=== PATIENT | male | born 1975 | race Caucasian/White ===

== ENCOUNTER 2016-08-02 05:22 | Emergency (ER) | payer MEDICARE ==
[2016-08-02 05:34] VITALS: O2SAT 100
--- NOTE | 2016-08-02 06:14 | ED.PDOC ---
History of Present Illness - General Chief Complaint: Lower Extremity Injury Stated Complaint: left hip pain Time Seen by Provider: 08/02/16 06:11 Source: patient Exam Limitations: no limitations - History of Present Illness Initial Comments: Patient stepped off of his truck and felt pain in his left sided hip prosthesis today. Prosthesis put in place for arthritis. He has had pain over the incision site all day with a single bruise. No exacerbating nor alleviating factors. No previous episodes. No other complaints. Timing/Duration: 24 hours Severity: mild Improving Factors: nothing Worsening Factors: nothing Associated Symptoms: denies symptoms Allergies/Adverse Reactions: Allergies Cefaclor [From Ceclor] Allergy (Mild, Verified 04/19/16 13:46) Rash Home Medications: Ambulatory Orders Citalopram Hydrobromide [CeleXA] 40 mg PO BEDTIME 11/29/15 Meloxicam DAILY 04/19/16 busPIRone HCL [Buspar] 5 mg PO BID 04/19/16 Review of Systems - Review of Systems Constitutional: States: no symptoms reported EENTM: States: no symptoms reported Respiratory: States: no symptoms reported Cardiology: States: no symptoms reported Gastrointestinal/Abdominal: States: no symptoms reported Genitourinary: States: no symptoms reported Musculoskeletal: States: see HPI Skin: States: no symptoms reported Neurological: States: no symptoms reported Endocrine: States: no symptoms reported Hematologic/Lymphatic: States: no symptoms reported Past Medical History (General) - Patient Medical History Hx Seizures: No Hx Stroke: Yes - heat related Hx Dementia: No Hx Asthma: No Hx of COPD: No Hx Cardiac Disorders: No Hx Congestive Heart Failure: No Hx Pacemaker: No Hx Hypertension: No Hx Thyroid Disease: No Hx Diabetes: No Hx Gastroesophageal Reflux: No Hx Renal Disease: No Hx Cancer: No Hx of HIV: No Hx Hepatitis C: No Hx MRSA: No - Vaccination History Hx Tetanus, Diphtheria Vaccination: Yes Hx Influenza Vaccination: Yes - Social History Hx Tobacco Use: Yes Hx Alcohol Use: No - once a week Hx Substance Use: Yes - smoke pot occ Hx Physical Abuse: No Hx Emotional Abuse: No - Triage Comment ED Triage Comment: after awakening this am with bruising to area, worried he injured L hip Family Medical History - Family History Mother Family History: No Known Living Status: Still Living Father Family History: No Known Living Status: Physical Exam - Physical Exam General Appearance: Alert Respiratory: lungs clear Cardiovascular/Chest: regular rate, rhythm Gastrointestinal/Abdominal: normal bowel sounds, non tender, soft Extremity: normal range of motion, non-tender, normal inspection Progress - Progress Progress: 08/02/16 06:13 two view of left hip showed prosthesis in place with no acute abnormalities Departure - Departure Clinical Impression: Contusion, hip Disposition: Discharge to Home or Self Care Condition: Good Departure Forms: ED Discharge - Pt. Copy, Patient Portal Self Enrollment Diet: resume usual diet Activity: increase activity as tolerated Home Medications: Ambulatory Orders Citalopram Hydrobromide [CeleXA] 40 mg PO BEDTIME 11/29/15 Meloxicam DAILY 04/19/16 busPIRone HCL [Buspar] 5 mg PO BID 04/19/16
[2016-08-02 06:29] VITALS: BP 139/78; TEMP 97.9
--- NOTE | 2016-08-02 13:47 | RAD ---
EXAM: Two view(s) of the left hip. INDICATION: Pain. COMPARISON: 06/21/2015. FINDINGS: No acute fracture or dislocation. Changes of a left hip arthroplasty in satisfactory alignment with no periprosthetic lucencies No large soft tissue swelling. IMPRESSION: 1. No acute fracture or dislocation. Electronically signed by: Darien Lares MD 08/02/2016 6:00 AM BOILER FITTER
--- NOTE | 2016-08-07 00:35 | RAD ---
EXAM: Two view(s) of the left hip. INDICATION: Pain. COMPARISON: 06/21/2015. FINDINGS: No acute fracture or dislocation. Changes of a left hip arthroplasty in satisfactory alignment with no periprosthetic lucencies No large soft tissue swelling. IMPRESSION: 1. No acute fracture or dislocation. Electronically signed by: Darien Lares MD 08/02/2016 6:00 AM CORNICE MAKER
== END 2016-08-02 06:29 | disposition home or self-care (01) ==
LOC: ER 05:22
DX: S70.02XA Contusion of left hip, initial encounter (principal); Z96.642 Presence of left artificial hip joint; Z88.3 Allergy status to other anti-infective agents; Z87.891 Personal history of nicotine dependence; X58.XXXA Exposure to other specified factors, initial encounter

== ENCOUNTER 2016-08-16 02:49 | Emergency (ER) | payer MEDICARE ==
[2016-08-16] MEDS ORDERED: IPRATROPIUM/ALBUTEROL 3 ML VIAL NEB ONE ×3 (02:57→03:19)
--- NOTE | 2016-08-16 03:15 | ED.PDOC ---
History of Present Illness - General Chief Complaint: Respiratory Problem Stated Complaint: shortness of breath Time Seen by Provider: 08/16/16 03:09 Source: patient Exam Limitations: no limitations - History of Present Illness Comments: He stated that he developed non productive cough 3 days ago becoming more frequent felt like getting worse.also with nasal congestion. Stated exposed to nearby neighbors with flu. Timing/Duration: other - 3 days ago Cough Quality/Degree: moderate, dry cough Possible Cause: illness exposure, smoke exposure Improving Factors: nothing Worsening Factors: nothing Associated Symptoms: shortness of breath Respiratory Risk Factors: exposure to illness Allergies/Adverse Reactions: Allergies Cefaclor [From Ceclor] Allergy (Mild, Verified 08/16/16 02:55) Rash Home Medications: Ambulatory Orders Citalopram Hydrobromide [CeleXA] 40 mg PO BEDTIME 11/29/15 Meloxicam DAILY 04/19/16 busPIRone HCL [Buspar] 5 mg PO BID 04/19/16 Albuterol Inhaler [Ventolin Hfa Inhaler] 108 mcg IN QID PRN #1 inh 08/16/16 Amoxicillin [Amoxil] 1,000 mg PO BID #30 cap 08/16/16 Benzonatate Perles [Tessalon Perles] 200 mg PO BID #30 cap 08/16/16 Chlorpheniramine Maleate [Chlor-Trimeton Allergy] 12 mg PO BID #20 tab 08/16/16 Review of Systems - Review of Systems Constitutional: States: no symptoms reported EENTM: States: nose congestion Respiratory: States: see HPI, cough Cardiology: States: no symptoms reported Gastrointestinal/Abdominal: States: no symptoms reported Genitourinary: States: no symptoms reported Musculoskeletal: States: no symptoms reported Skin: States: no symptoms reported Neurological: States: no symptoms reported Endocrine: States: no symptoms reported Hematologic/Lymphatic: States: no symptoms reported Past Medical History (General) - Patient Medical History Hx Seizures: No Hx Stroke: Yes - heat related Hx Dementia: No Hx Asthma: Yes - as a child Hx of COPD: No Hx Cardiac Disorders: No Hx Congestive Heart Failure: No Hx Pacemaker: No Hx Hypertension: No Hx Thyroid Disease: No Hx Diabetes: No Hx Gastroesophageal Reflux: No Hx Renal Disease: No Hx Cancer: No Hx of HIV: No Hx Hepatitis C: No Hx MRSA: No Surgical History: other - left hip,urethral dilatation - Vaccination History Hx Tetanus, Diphtheria Vaccination: No Hx Influenza Vaccination: No Hx Pneumococcal Vaccination: No - Social History Hx Tobacco Use: Yes Hx Chewing Tobacco Use: No Hx Alcohol Use: No - once a week Hx Substance Use: Yes - smoke pot occ Feels Threatened In Home Enviroment: No Feels Threatened In a Relationship: No Hx Physical Abuse: No Hx Emotional Abuse: No Hx Suspected Abuse: No - Activities of Daily Living Patient Lives Alone: No - family Family Medical History - Family History Mother Family History: No Known Living Status: Still Living Hx Family Asthma: Yes Hx Family Hypertension: Yes - parents Father Family History: No Known Living Status: Physical Exam - Physical Exam General Appearance: Alert, No apparent distress Eye Exam: bilateral normal ENT Exam: normal ENT inspection, hearing grossly normal, TMs normal Neck: non-tender, full range of motion, supple, normal inspection, trachea midline Respiratory: chest non-tender, no respiratory distress, no accessory muscle use , wheezing - mild Cardiovascular/Chest: normal peripheral pulses, regular rate, rhythm, no edema, no gallop, no JVD, no murmur Gastrointestinal/Abdominal: normal bowel sounds, non tender, soft Extremity: non-tender, normal inspection, no calf tenderness Neurologic: no motor/sensory deficits, alert, normal mood/affect, oriented x 3 Skin Exam: normal color, warm/dry Lymphatic: no adenopathy Progress - Results/Orders Results/Orders: 08/16/16 03:16 SVN/Updraft Therapy .ONCE 08/16/16 09:00 Updrafts Daily Flu swab negative - EKG/XRAY/CT XRAY: chest - no acute abnormalities Departure - Departure Clinical Impression: Bronchitis, acute Qualifiers: Bronchitis organism: unspecified organism Qualifier Code: (J20.9) Acute bronchitis, unspecified Time of Disposition: 04:06 Disposition: Discharge to Home or Self Care Condition: Good Departure Forms: ED Discharge - Pt. Copy, Patient Portal Self Enrollment Instructions: DI for Acute Bronchitis, Acute Bronchitis Referrals: Dustin Gray MD [Primary Care Provider] - 1-2 Weeks Prescriptions: Amoxicillin [Amoxil] 1,000 mg PO BID #30 cap Chlorpheniramine Maleate [Chlor-Trimeton Allergy] 12 mg PO BID #20 tab Benzonatate Perles [Tessalon Perles] 200 mg PO BID #30 cap Albuterol Inhaler [Ventolin Hfa Inhaler] 108 mcg IN QID PRN #1 inh PRN Reason: Cough & Congestion Home Medications: Ambulatory Orders Citalopram Hydrobromide [CeleXA] 40 mg PO BEDTIME 11/29/15 Meloxicam DAILY 04/19/16 busPIRone HCL [Buspar] 5 mg PO BID 04/19/16 Albuterol Inhaler [Ventolin Hfa Inhaler] 108 mcg IN QID PRN #1 inh 08/16/16 Amoxicillin [Amoxil] 1,000 mg PO BID #30 cap 08/16/16 Benzonatate Perles [Tessalon Perles] 200 mg PO BID #30 cap 08/16/16 Chlorpheniramine Maleate [Chlor-Trimeton Allergy] 12 mg PO BID #20 tab 08/16/16
[2016-08-16] MEDS ORDERED: diphenhydrAMINE HCL 25 MG CAP PO ONE (03:18)
[2016-08-16] MEDS ORDERED: BENZONATATE PERLES 100 MG CAP PO ONE (03:18)
--- NOTE | 2016-08-16 03:45 | RAD ---
EXAM: Single view chest. INDICATION: Chest pain. COMPARISON: Chest x-ray: 11/29/2015. FINDINGS: Cardiac silhouette: Unremarkable. Mariaa: Unremarkable. Lobar consolidation: None. Pleural effusion: None. Pneumothorax: None. Other: None. Bones: Unremarkable. Other: None. IMPRESSION: 1. No acute cardiopulmonary process. Electronically signed by: Darien Lares MD 08/16/2016 3:44 AM METAL CHECKER
[2016-08-16 04:08] VITALS: BP 128/95; O2SAT 94
[2016-08-16] MEDS ORDERED: AMOXICILLIN 500 MG CAP PO ONE (04:11)
[2016-08-16 04:22] VITALS: TEMP 99.7
== END 2016-08-16 04:22 | disposition home or self-care (01) ==
LOC: ER 02:49
DX: J20.9 Acute bronchitis, unspecified (principal); Z87.891 Personal history of nicotine dependence; Z88.8 Allergy status to other drugs, medicaments and biological substances; Z79.899 Other long term (current) drug therapy
CPT/HCPCS: 71010; 87502; 94640; J7620; Q0163

== ENCOUNTER 2017-05-31 22:17 | Emergency (ER) | payer MEDICARE ==
[2017-05-31 22:36] VITALS: TEMP 98.7
--- NOTE | 2017-05-31 22:49 | ED.PDOC ---
History of Present Illness - General Chief Complaint: Respiratory Problem Stated Complaint: Trouble breathing Time Seen by Provider: 05/31/17 22:24 Source: patient, RN notes reviewed, Vital Signs reviewed Exam Limitations: no limitations Additional Information: Pt presents c/o shortness of breath. Pt states he has had "trouble breathing since like 3 days ago". Pt states, "They usually give me a breathing treatment and send me home" - History of Present Illness Timing/Duration: other - over the past 3 days Possible Cause: allergen exposure - cat Improving Factors: nothing Worsening Factors: movement Associated Symptoms: cough, shortness of breath Allergies/Adverse Reactions: Allergies Cefaclor [From Ceclor] Allergy (Mild, Verified 05/31/17 22:37) Rash Home Medications: Ambulatory Orders Citalopram Hydrobromide [CeleXA] 40 mg PO BEDTIME 11/29/15 Meloxicam DAILY 04/19/16 busPIRone HCL [Buspar] 5 mg PO BID 04/19/16 Albuterol Inhaler [Ventolin Hfa Inhaler] 108 mcg IN QID PRN #1 inh 08/16/16 Amoxicillin [Amoxil] 1,000 mg PO BID #30 cap 08/16/16 Benzonatate Perles [Tessalon Perles] 200 mg PO BID #30 cap 08/16/16 Chlorpheniramine Maleate [Chlor-Trimeton Allergy] 12 mg PO BID #20 tab 08/16/16 predniSONE 40 mg PO DAILY 4 Days #8 tab 05/31/17 Review of Systems - Review of Systems Constitutional: States: no symptoms reported EENTM: States: no symptoms reported Respiratory: States: see HPI, cough, short of breath Cardiology: States: no symptoms reported Gastrointestinal/Abdominal: States: no symptoms reported Genitourinary: States: no symptoms reported Musculoskeletal: States: no symptoms reported Skin: States: no symptoms reported Neurological: States: no symptoms reported Endocrine: States: no symptoms reported Hematologic/Lymphatic: States: no symptoms reported Past Medical History (General) - Patient Medical History Hx Seizures: No Hx Stroke: Yes - heat related Hx Dementia: No Hx Asthma: Yes - as a child Hx of COPD: No Hx Cardiac Disorders: No Hx Congestive Heart Failure: No Hx Pacemaker: No Hx Hypertension: No Hx Thyroid Disease: No Hx Diabetes: No Hx Gastroesophageal Reflux: No Hx Renal Disease: No Hx Cancer: No Hx of HIV: No Hx Hepatitis C: No Hx MRSA: No Surgical History: other - Vaccination History Hx Tetanus, Diphtheria Vaccination: Yes Hx Influenza Vaccination: No Hx Pneumococcal Vaccination: No - Social History Hx Tobacco Use: Yes Hx Chewing Tobacco Use: No Hx Alcohol Use: Yes Hx Substance Use: Yes - smoke pot occ Hx Depression: Yes Feels Threatened In Home Enviroment: No Feels Threatened In a Relationship: No Hx Physical Abuse: No Hx Emotional Abuse: No Hx Suspected Abuse: No - Female History Patient is a Female of Child Bearing Age (10 -59 yrs old): No Family Medical History - Family History Mother Family History: No Known Living Status: Still Living Hx Family Asthma: Yes Hx Family Hypertension: Yes - parents Father Family History: No Known Living Status: Physical Exam - Physical Exam General Appearance: Alert, Comfortable, No apparent distress, Unkempt Eye Exam: bilateral normal ENT Exam: normal ENT inspection, hearing grossly normal Neck: non-tender, full range of motion, supple Respiratory: no respiratory distress - but he does have an occasional cough, no accessory muscle use, rales - occasional, wheezing - occasional Cardiovascular/Chest: no murmur, tachycardia Gastrointestinal/Abdominal: non tender, soft Extremity: non-tender, normal inspection Neurologic: color developer II-XII nml as tested, no motor/sensory deficits, alert, oriented x 3 Skin Exam: normal color Lymphatic: no adenopathy Progress - Progress Progress: 05/31/17 23:31 Pt afebrile, nontoxic, in no obvious respiratory distress. Pt appears to have hypersensitive/hyper-responsive airways likely triggered by recent allergic exposure (cats). Will treat with steroids and bronchodilator for now and discharge home with strict return precautions. - Results/Orders Results/Orders: Chest X-Ray Report: Findings: The lungs are clear bilaterally. No pneumothorax or pleural effusion. The cardiomediastinal silhouette is within normal limits. Impression: No acute disease. 06/01/17 23:12 Albuterol Inhaler [Ventolin Hfa Inhaler] 2 puff INH RTQ4 Laboratory Results - last 24 hr 05/31/17 22:25 pCO2 33 L pO2 90 HCO3 19.4 ABG pH 7.390 ABG O2 Saturation 98.2 ABG Base Excess -4.2 ABG Deoxyhemoglobin 1.7 Oxyhemoglobin % 92.9 L Carboxyhemoglobin % 4.1 H Methemoglobin % Sat 1.4 Calc Total Hemoglobin 13.3 L 05/31/17 05/31/17 22:30 22:38 Temperature 98.7 F Pulse Rate [ 111 H Right Brachial] Respiratory 20 20 Rate Blood Pressure 138/78 [Right Arm] O2 Sat by Pulse 98 Oximetry Departure - Departure Clinical Impression: Bronchitis Time of Disposition: 23:35 Disposition: Discharge to Home or Self Care Condition: Good Departure Forms: ED Discharge - Pt. Copy, Patient Portal Self Enrollment Instructions: DI for Acute Bronchitis Referrals: Dustin Gray MD [Primary Care Provider] - 1-5 Days Prescriptions: predniSONE 40 mg PO DAILY 4 Days #8 tab Home Medications: Ambulatory Orders Citalopram Hydrobromide [CeleXA] 40 mg PO BEDTIME 11/29/15 Meloxicam DAILY 04/19/16 busPIRone HCL [Buspar] 5 mg PO BID 04/19/16 Albuterol Inhaler [Ventolin Hfa Inhaler] 108 mcg IN QID PRN #1 inh 08/16/16 Amoxicillin [Amoxil] 1,000 mg PO BID #30 cap 08/16/16 Benzonatate Perles [Tessalon Perles] 200 mg PO BID #30 cap 08/16/16 Chlorpheniramine Maleate [Chlor-Trimeton Allergy] 12 mg PO BID #20 tab 08/16/16 predniSONE 40 mg PO DAILY 4 Days #8 tab 05/31/17 Additional Instructions: Take medicine as prescribed. Return to ER if condition worsens/difficulty breathing. Follow-up with Primary Care Provider if symptoms persist in 3 to 5 days.
[2017-05-31] MEDS ORDERED: predniSONE 20 MG TAB PO ONE (23:12)
--- NOTE | 2017-05-31 23:15 | RAD ---
Examination: XR CHEST 2 VIEWS dated 05/31/2017 10:53 PM DELINQUENT TAX COLLECTION ASSISTANT History: SOB Comparison: 08/16/2016 Technique: Frontal and lateral views of the chest Findings: The lungs are clear bilaterally. No pneumothorax or pleural effusion. The cardiomediastinal silhouette is within normal limits. Impression: No acute disease. Electronically signed by: Feliz Garcia MD 05/31/2017 11:13 PM DELINQUENT TAX COLLECTION ASSISTANT
[2017-05-31] MEDS ORDERED: ALBUTEROL INH (ER DISPENSE) 1 EA INH INH ONE ×2 (23:19→23:20)
[2017-05-31 23:33] VITALS: BP 129/85
[2017-05-31 23:38] VITALS: O2SAT 98
[2017-06-01] MEDS ORDERED: ALBUTEROL INHALER 64 PUFF/8GM INH SCH (23:12)
== END 2017-05-31 23:35 | disposition home or self-care (01) ==
LOC: ER 22:17
DX: J45.909 Unspecified asthma, uncomplicated (principal); F17.200 Nicotine dependence, unspecified, uncomplicated; Z79.899 Other long term (current) drug therapy; Z88.1 Allergy status to other antibiotic agents
CPT/HCPCS: 36600; 71020; 82803; 82805; J7512

== ENCOUNTER 2017-07-22 22:04 | Emergency (ER) | payer MEDICARE ==
[2017-07-22 22:18] VITALS: TEMP 96.7; O2SAT 100
--- NOTE | 2017-07-22 22:35 | ED.PDOC ---
History of Present Illness - General Chief Complaint: Upper Extremity Injury Stated Complaint: right shoulder pain Time Seen by Provider: 07/22/17 22:22 Source: patient Exam Limitations: no limitations Additional Information: 42 YEAR OLD INJURED HIS RIGHT SHOULDER WHILE TRYING TO PUT THE ROOF TOP OF HIS TRUCK THIS EVENING NO OTHER INJURY - History of Present Illness Timing/Duration: 1 hour Severity: moderate Improving Factors: movement Worsening Factors: immobilization Associated Symptoms: denies symptoms Allergies/Adverse Reactions: Allergies Cefaclor [From Ceclor] Allergy (Mild, Verified 05/31/17 22:37) Rash Home Medications: Ambulatory Orders Citalopram Hydrobromide [CeleXA] 40 mg PO BEDTIME 11/29/15 Naproxen [Naprosyn] 500 mg PO Q12HRS #30 tab 07/22/17 Review of Systems - Review of Systems Constitutional: States: no symptoms reported EENTM: States: no symptoms reported Respiratory: States: no symptoms reported Cardiology: States: no symptoms reported Gastrointestinal/Abdominal: States: no symptoms reported Genitourinary: States: no symptoms reported Musculoskeletal: States: see HPI Skin: States: no symptoms reported Neurological: States: no symptoms reported Endocrine: States: no symptoms reported Hematologic/Lymphatic: States: no symptoms reported Past Medical History (General) - Patient Medical History Hx Seizures: No Hx Stroke: Yes - heat related Hx Dementia: No Hx Asthma: Yes - as a child Hx of COPD: No Hx Cardiac Disorders: No Hx Congestive Heart Failure: No Hx Pacemaker: No Hx Hypertension: No Hx Thyroid Disease: No Hx Diabetes: No Hx Gastroesophageal Reflux: No Hx Renal Disease: No Hx Cancer: No Hx of HIV: No Hx Hepatitis C: No Hx MRSA: No - Vaccination History Hx Tetanus, Diphtheria Vaccination: Yes Hx Influenza Vaccination: No Hx Pneumococcal Vaccination: No - Social History Hx Tobacco Use: Yes Hx Chewing Tobacco Use: No Hx Alcohol Use: Yes Hx Substance Use: Yes - smoke pot occ Hx Depression: Yes Hx Physical Abuse: No Hx Emotional Abuse: No Hx Suspected Abuse: No Family Medical History - Family History Mother Family History: No Known Living Status: Still Living Hx Family Asthma: Yes Hx Family Hypertension: Yes - parents Father Family History: No Known Living Status: Physical Exam - Physical Exam General Appearance: Alert, Comfortable Eye Exam: bilateral normal Ears, Nose, Throat: hearing grossly normal, normal ENT inspection, normal pharynx Neck: non-tender, full range of motion, supple Respiratory: chest non-tender, lungs clear, normal breath sounds Cardiovascular/Chest: normal peripheral pulses, regular rate, rhythm, no edema Gastrointestinal/Abdominal: non tender, soft - RIGHT SHOULDER AC JOINT IS PROMINANT AND TENDER TO PALPATE NO JOINT EFFUSION NO SHOULDER JOIONT LINE TENDERNESS NOTED Rectal Exam: normal exam Back Exam: normal inspection, no CVA tenderness Departure - Departure Clinical Impression: Closed dislocation of right acromioclavicular joint, Sprain Time of Disposition: 22:39 Disposition: Discharge to Home or Self Care Condition: Good Departure Forms: ED Discharge - Pt. Copy, Patient Portal Self Enrollment Referrals: Dustin Gray MD [Primary Care Provider] - 1-2 Weeks Prescriptions: Naproxen [Naprosyn] 500 mg PO Q12HRS #30 tab Home Medications: Ambulatory Orders Citalopram Hydrobromide [CeleXA] 40 mg PO BEDTIME 11/29/15 Naproxen [Naprosyn] 500 mg PO Q12HRS #30 tab 07/22/17 Additional Instructions: SLING AND LOCAL ICE COMPRESS IF PAIN PERSISTS AFTER A PERIOD OF 2 WEEKS PLEASE FOLLOW UP WITH DR BARBARA MAI
--- NOTE | 2017-07-22 22:41 | RAD ---
EXAM DESCRIPTION: Shoulder,Right 2 or More Views CLINICAL HISTORY: pain aftrer lifting object overhead, fingers numb COMPARISON: None. FINDINGS: 2 views of the right shoulder no acute fracture or dislocation. Normal osseous mineralization. No fracture visualized ribs or right-sided pneumothorax. IMPRESSION: No acute fracture or dislocation. Electronically signed by: Francois Reeves 07/22/2017 10:40 PM METAL FLOORING INSTALLER
[2017-07-22] MEDS ORDERED: HYDROCOD/APAP 5/325 (ER DISP) #3 TAB PO ONE (22:53)
[2017-07-22] MEDS: HYDROCOD/APAP 5/325 (ER DISP) #3 TAB PO ONE (22:56)
[2017-07-22 22:58] VITALS: BP 160/105
== END 2017-07-22 22:59 | disposition home or self-care (01) ==
LOC: ER 22:04
DX: S43.101A Unspecified dislocation of right acromioclavicular joint, initial encounter (principal); S43.401A Unspecified sprain of right shoulder joint, initial encounter; Z87.891 Personal history of nicotine dependence; X58.XXXA Exposure to other specified factors, initial encounter; Y92.9 Unspecified place or not applicable